=== PATIENT | female | born 1950 | race Caucasian/White ===

== ENCOUNTER 2018-05-03 16:09 | Inpatient (IN) | payer OTHER ==
[~2018-05-03] VITALS: Ht 152.4 cm; Wt 63.5 kg
[2018-05-03] MEDS ORDERED: SODIUM CHLORIDE 0.9% 1,000 ML IV ONE (17:23)
[2018-05-03] MEDS ORDERED: KETOROLAC 30MG/ML VIAL IV STA (17:23)
[2018-05-03] MEDS ORDERED: ONDANSETRON HCL 4MG/2ML INJ IV STA (17:23)
[2018-05-03] MEDS ORDERED: ASPIRIN 81MG TABLET PO ONE (17:30)
[2018-05-03 18:16] LABS: BASOPHILS % 0.4 % (0.0-2.0); EOSINOPHILS % 0.4 % (0.0-5.0); HEMATOCRIT. 44.4 % (36.0-48.0); HEMOGLOBIN. 14.7 g/dL (12.0-16.0); LYMPHOCYTES % 15.8 % (20.0-50.0); MEAN CORPUSCULAR HEMOGLOBIN 28.4 pg (28.0-32.0); MEAN CORPUSCULAR VOLUME 85.9 fL (81.0-99.0); MEAN PLATELET VOLUME 7.6 fl (7.4-10.4); MONOCYTES % 2.9 % (2.0-8.0); NEUTROPHILS % 80.5 % (40.0-76.0); PLATELET 226 x1000/uL (130-400); RED BLOOD CELL COUNT 5.16 mill/uL (4.2-5.4); RED CELL DISTRIBUTION WIDTH 15.5 % (11.6-14.6)
[2018-05-03 18:19] LABS: CHLORIDE 104 mEq/L (98-107)
[2018-05-03] MEDS ORDERED: POTASSIUM CHLORIDE 20MEQ TABLET SR PO ONE (19:30)
[2018-05-03 20:59] VITALS: BP 146/67
[2018-05-03 21:00] VITALS: BP 146/67
[2018-05-03] MEDS ORDERED: MAGNESIUM/ALUMINUM HYDROXIDE/SIMETHICONE 30ML UDC PO PRN (21:45)
[2018-05-03] MEDS ORDERED: ONDANSETRON HCL 4MG/2ML INJ IV PRN (21:45)
[2018-05-03] MEDS ORDERED: CLONIDINE 0.1MG TABLET PO PRN (21:45)
[2018-05-03] MEDS ORDERED: ACETAMINOPHEN 325MG TABLET PO PRN (21:45)
[2018-05-03] MEDS ORDERED: KETOROLAC 30MG/ML VIAL IV PRN (21:45)
[2018-05-03] MEDS ORDERED: SODIUM CHLORIDE 0.9% INJ 3ML FLUSH IVF SCH (23:00)
[2018-05-03] MEDS ORDERED: POTASSIUM CHLORIDE 20MEQ TABLET SR PO NR (23:00)
[2018-05-04] VITALS: BP 123/56
[2018-05-04 04:00] VITALS: BP_SYST 101; BP_SYST 99; BP_DIAS 47; BP_DIAS 52
[2018-05-04 07:38] LABS: CHLORIDE 111 mEq/L (98-107)
[2018-05-04 08:00] VITALS: BP 103/56
[2018-05-04] MEDS ORDERED: FAMOTIDINE 20MG TABLET PO SCH (09:00)
[2018-05-04 17:39] VITALS: BP 102/44
== END 2018-05-04 18:00 | disposition home or self-care (01) | DRG 203 ==
LOC: ER 16:09 → 8WST 19:45 → EDBEDREQ 19:48 → EDBEDREQTM 19:48 → ENRESERV 20:03
PROVIDERS: ADMIT Internal Medicine; ATTEND Internal Medicine
DX: R07.89 Other chest pain (principal); E87.6 Hypokalemia; I10 Essential (primary) hypertension; Z90.49 Acquired absence of other specified parts of digestive tract
CPT/HCPCS: 36415; 71045; 80051; 83880; 84484; 85379; 93005; 93970; 96361; 96374; 96375; 99285; J1885; J2405; J7030